=== PATIENT | male | born 1975 | race African-American/Black ===

== ENCOUNTER 2017-06-28 17:02 | Inpatient (IN) | payer OTHER ==
[~2017-06-28] VITALS: Ht 182.9 cm; Wt 128.0 kg
[2017-06-28] MEDS ORDERED: SODIUM CHLORIDE 0.9% 1,000 ML IV ONE (18:12)
[2017-06-28] MEDS ORDERED: CLINDAMYCIN 600MG IV 50 ML IV ONE (18:15)
[2017-06-28 18:55] LABS: Basophils # (auto) 0.1 uL; Eosinophils # (auto) 0.1 uL; Hematocrit 44.2 % (41.0-53.0); Monocytes # (auto) 0.8 uL
[2017-06-28 18:59] LABS: Basophils % (auto) 0.9 % (0.0-2.0); Eosinophils % (auto) 0.9 % (0.0-7.0); Hemoglobin 14.7 g/dL (13.5-17.5); Lymphocytes # (auto) 2.4 uL; Lymphocytes % (auto) 24.6 % (10.0-50.0); Mean Corpuscular Hemoglobin 26.9 pg (28.0-32.0); Mean Corpuscular Hgb Conc. 33.3 g/dL (32.0-36.0); Mean Corpuscular Volume 80.7 fL (80.0-100.0); Monocytes % (auto) 7.9 % (0.0-12.0); Neutrophils # (auto) 6.4 uL; Neutrophils % (auto) 65.7 % (37.0-80.0); Nucleated Red Blood Cells % 0.2 %; Platelet Count (auto) 183 10^3/uL (140-450); Red Blood Cells 5.47 10^6/uL (4.5-5.90); Red Cell Distribution Width 13.6 % (11.8-14.3); White Blood Cell 9.7 10^3/uL (4.4-10.8)
[2017-06-28 19:06] LABS: INR 1.05 (0.9-1.15); Partial Thromboplastin Time 31.8 sec (22.64-33.71); Prothrombin Time 11.5 sec (9.37-12.3)
[2017-06-28 19:12] LABS: Albumin 3.6 g/dL (3.4-5.0); BUN/Creatinine Ratio 6.6; Bilirubin, Total 0.6 mg/dL (0.2-1.0); Calcium 8.8 mg/dL (8.5-10.1); Magnesium 2.5 mg/dL (1.6-2.6); Potassium 4.3 mmol/L (3.5-5.1); Total Protein 8.8 g/dL (6.4-8.2)
[2017-06-28] MEDS ORDERED: LISINOPRIL 5 MG TAB PO ONE (20:15)
[2017-06-28] MEDS ORDERED: DEXTROSE (50%) 50ML SYRG IV PRN (20:15)
[2017-06-28] MEDS: InsuLIN REG 1unit/0.01ml Soln (100units/ml) SC SCH (22:00)
[2017-06-28] MEDS ORDERED: VANCOMYCIN 1GM/250ML 250 ML IV ONE (22:00)
[2017-06-28] MEDS: ACCU-CHEK COMFORT CURVE STRIP VI SCH (22:00)
[2017-06-29 01:13] VITALS: BP 139/84
[2017-06-29] MEDS ORDERED: HYDROcodone-ACET 10/325MG TAB PO ONE (02:00)
[2017-06-29 05:31] VITALS: BP 134/95
[2017-06-29] MEDS: InsuLIN REG 1unit/0.01ml Soln (100units/ml) SC SCH ×4 (06:46→22:06)
[2017-06-29] MEDS: ACCU-CHEK COMFORT CURVE STRIP VI SCH ×4 (06:46→22:06)
[2017-06-29 09:00] VITALS: BP 153/95
[2017-06-29] MEDS ORDERED: INSULIN LANTUS (GLARGINE) 1 /0.01ml (100units/ml) SC ONE (10:00)
[2017-06-29] MEDS: LOSARTAN POTASSIUM 25 MG TAB PO SCH (10:14)
[2017-06-29] MEDS: INSULIN LANTUS (GLARGINE) 1 /0.01ml (100units/ml) SC SCH (10:19)
[2017-06-29 13:00] VITALS: BP 141/91
[2017-06-29 22:00] VITALS: BP 144/81
[2017-06-29] MEDS: AMITRIPTYLINE HCL 25 MG TAB PO SCH (22:05)
[2017-06-29] MEDS: HALOPERIDOL 5 MG TAB PO SCH (22:06)
[2017-06-30 05:00] VITALS: BP 129/73
[2017-06-30] MEDS: ACCU-CHEK COMFORT CURVE STRIP VI SCH ×4 (06:19→22:00)
[2017-06-30] MEDS: InsuLIN REG 1unit/0.01ml Soln (100units/ml) SC SCH ×4 (06:19→22:00)
[2017-06-30 09:00] VITALS: BP 111/73
[2017-06-30] MEDS: LOSARTAN POTASSIUM 25 MG TAB PO SCH (09:56)
[2017-06-30] MEDS: HYDROcodone-ACET 5/325MG TAB PO PRN ×2 (09:57→17:40)
[2017-06-30] MEDS: INSULIN LANTUS (GLARGINE) 1 /0.01ml (100units/ml) SC SCH (10:31)
[2017-06-30] MEDS ORDERED: VANCOMYCIN PER PHARMACY 0 MG IV SCH (12:45)
[2017-06-30 13:41] VITALS: BP 126/86
[2017-06-30 14:41] LABS: Albumin 2.8 g/dL (3.4-5.0); BUN/Creatinine Ratio 10.1; Bilirubin, Total 0.2 mg/dL (0.2-1.0); Calcium 8.4 mg/dL (8.5-10.1); Potassium 4.1 mmol/L (3.5-5.1); Total Protein 7.5 g/dL (6.4-8.2)
[2017-06-30] MEDS: VANCOMYCIN 1,250 MG in D5W 5% 250 ML IV SCH (15:49)
[2017-06-30 17:09] VITALS: BP 135/88
[2017-06-30] MEDS: HALOPERIDOL 5 MG TAB PO SCH (21:36)
[2017-06-30] MEDS: AMITRIPTYLINE HCL 25 MG TAB PO SCH (21:36)
[2017-06-30] MEDS: ASCORBIC ACID 500 MG TAB PO SCH (21:37)
[2017-06-30] MEDS ORDERED: VANCOMYCIN 1GM/250ML 250 ML IV SCH (22:00)
[2017-06-30 22:18] VITALS: BP 133/86
[2017-07-01] MEDS: VANCOMYCIN 1,250 MG in D5W 5% 250 ML IV SCH ×2 (01:44→14:14)
[2017-07-01 04:45] VITALS: BP 127/86
[2017-07-01] MEDS: InsuLIN REG 1unit/0.01ml Soln (100units/ml) SC SCH ×4 (05:47→22:50)
[2017-07-01] MEDS: ACCU-CHEK COMFORT CURVE STRIP VI SCH ×4 (05:47→22:49)
[2017-07-01 07:38] LABS: Albumin 2.9 g/dL (3.4-5.0); Calcium 8.8 mg/dL (8.5-10.1); Potassium 3.9 mmol/L (3.5-5.1)
[2017-07-01 07:40] LABS: BUN/Creatinine Ratio 8.9
[2017-07-01 07:42] LABS: Bilirubin, Total 0.2 mg/dL (0.2-1.0); Total Protein 7.7 g/dL (6.4-8.2)
[2017-07-01 08:00] VITALS: BP 128/99
[2017-07-01 09:00] VITALS: BP 128/99
[2017-07-01] MEDS: ASCORBIC ACID 500 MG TAB PO SCH ×2 (09:59→22:49)
[2017-07-01] MEDS: MULTIPLE VITAMIN TAB PO SCH (09:59)
[2017-07-01] MEDS: LOSARTAN POTASSIUM 25 MG TAB PO SCH (09:59)
[2017-07-01] MEDS: INSULIN LANTUS (GLARGINE) 1 /0.01ml (100units/ml) SC SCH (10:03)
[2017-07-01 12:41] VITALS: BP 156/97
[2017-07-01 16:55] VITALS: BP 140/95
[2017-07-01 22:03] VITALS: BP 164/93
[2017-07-01] MEDS: AMITRIPTYLINE HCL 25 MG TAB PO SCH (22:48)
[2017-07-01] MEDS: HALOPERIDOL 5 MG TAB PO SCH (22:49)
[2017-07-02] MEDS: VANCOMYCIN 1,250 MG in D5W 5% 250 ML IV SCH (03:00)
[2017-07-02 05:22] VITALS: BP 158/86
[2017-07-02] MEDS: ACCU-CHEK COMFORT CURVE STRIP VI SCH ×4 (06:27→21:50)
[2017-07-02] MEDS: InsuLIN REG 1unit/0.01ml Soln (100units/ml) SC SCH ×4 (06:28→21:50)
[2017-07-02] MEDS ORDERED: ceFAZolin 1GM/50ML 50 ML IV ONE (06:51)
[2017-07-02] MEDS ORDERED: BUPIVACAINE 0.75% INJ 10ML MPV SDV IJ ONE (06:59)
[2017-07-02] MEDS ORDERED: ceFAZolin 1GM VL ONE (06:59)
[2017-07-02] MEDS ORDERED: NEOMYCIN-BACITRACIN-POLYM 15GM TOP OINT TOP ONE (06:59)
[2017-07-02 07:03] LABS: BUN/Creatinine Ratio 7.5; Bilirubin, Total 0.3 mg/dL (0.2-1.0); Calcium 8.5 mg/dL (8.5-10.1); Potassium 4.4 mmol/L (3.5-5.1); Total Protein 8.2 g/dL (6.4-8.2)
[2017-07-02] MEDS ORDERED: MIDAZOLAM HCL 1MG/1ML-2 ML VIAL ONE (07:43)
[2017-07-02] MEDS ORDERED: fentaNYL CITRATE 100 MCG/2 ML VL ONE (07:43)
[2017-07-02] MEDS ORDERED: PROPOFOL 10 MG/ML 20 ML IV ONE (07:43)
[2017-07-02] MEDS ORDERED: ePHEDrine SULFATE 50 MG/ML AMP IV PRN (08:45)
[2017-07-02] MEDS ORDERED: ONDANSETRON HCL 4 MG/2 ML VIAL IV ONE (08:45)
[2017-07-02] MEDS ORDERED: hydrALAZINE HCL 20 MG/ML VL IV PRN (08:45)
[2017-07-02] MEDS ORDERED: HYDROmorphone HCL 2 MG/ML VL IV PRN (08:45)
[2017-07-02] MEDS: INSULIN LANTUS (GLARGINE) 1 /0.01ml (100units/ml) SC SCH (10:00)
[2017-07-02] MEDS: MULTIPLE VITAMIN TAB PO SCH (10:42)
[2017-07-02] MEDS: ASCORBIC ACID 500 MG TAB PO SCH ×2 (10:42→21:48)
[2017-07-02] MEDS: HYDROcodone-ACET 5/325MG TAB PO PRN ×2 (10:42→17:59)
[2017-07-02] MEDS: LOSARTAN POTASSIUM 25 MG TAB PO SCH (10:43)
[2017-07-02 10:52] VITALS: BP 132/90
[2017-07-02 11:48] VITALS: BP 147/96
[2017-07-02] MEDS: VANCOMYCIN 1,500 MG in D5W 5% 250 ML IV SCH (12:45)
[2017-07-02 17:05] VITALS: BP 155/93
[2017-07-02] MEDS: HALOPERIDOL 5 MG TAB PO SCH (21:49)
[2017-07-02] MEDS: AMITRIPTYLINE HCL 25 MG TAB PO SCH (21:49)
[2017-07-02 22:00] VITALS: BP 142/97
[2017-07-03] MEDS: VANCOMYCIN 1,500 MG in D5W 5% 250 ML IV SCH ×2 (00:17→12:09)
[2017-07-03 05:04] VITALS: BP 156/92
[2017-07-03] MEDS: HYDROcodone-ACET 5/325MG TAB PO PRN ×3 (05:42→22:39)
[2017-07-03] MEDS: InsuLIN REG 1unit/0.01ml Soln (100units/ml) SC SCH ×4 (06:45→22:00)
[2017-07-03] MEDS: ACCU-CHEK COMFORT CURVE STRIP VI SCH ×4 (06:45→22:00)
[2017-07-03 07:20] LABS: Albumin 2.9 g/dL (3.4-5.0); Calcium 8.8 mg/dL (8.5-10.1)
[2017-07-03 07:26] LABS: Bilirubin, Total 0.4 mg/dL (0.2-1.0); Total Protein 7.8 g/dL (6.4-8.2)
[2017-07-03 09:22] VITALS: BP 131/84
[2017-07-03] MEDS: ASCORBIC ACID 500 MG TAB PO SCH ×2 (10:02→22:34)
[2017-07-03] MEDS: MULTIPLE VITAMIN TAB PO SCH (10:02)
[2017-07-03] MEDS: LOSARTAN POTASSIUM 25 MG TAB PO SCH (10:03)
[2017-07-03] MEDS: INSULIN LANTUS (GLARGINE) 1 /0.01ml (100units/ml) SC SCH (10:07)
[2017-07-03 12:30] VITALS: BP 119/87
[2017-07-03 17:29] VITALS: BP 152/83
[2017-07-03 20:00] VITALS: BP 155/55
[2017-07-03 22:00] VITALS: BP 155/94
[2017-07-03] MEDS: AMITRIPTYLINE HCL 25 MG TAB PO SCH (22:34)
[2017-07-03] MEDS: HALOPERIDOL 5 MG TAB PO SCH (22:34)
[2017-07-04] MEDS: VANCOMYCIN 1,500 MG in D5W 5% 250 ML IV SCH ×2 (01:39→11:37)
[2017-07-04 05:20] VITALS: BP 135/90
[2017-07-04] MEDS: InsuLIN REG 1unit/0.01ml Soln (100units/ml) SC SCH ×4 (06:49→22:00)
[2017-07-04] MEDS: ACCU-CHEK COMFORT CURVE STRIP VI SCH ×4 (06:49→22:08)
[2017-07-04 07:06] LABS: Basophils # (auto) 0 uL; Basophils % (auto) 0.4 % (0.0-2.0); Eosinophils # (auto) 0.1 uL; Hematocrit 41.9 % (41.0-53.0); Hemoglobin 14.1 g/dL (13.5-17.5); Lymphocytes # (auto) 2.5 uL; Lymphocytes % (auto) 26.9 % (10.0-50.0); Mean Corpuscular Hgb Conc. 33.6 g/dL (32.0-36.0); Mean Corpuscular Volume 80.2 fL (80.0-100.0); Monocytes # (auto) 0.8 uL; Monocytes % (auto) 8.6 % (0.0-12.0); Neutrophils # (auto) 5.8 uL; Neutrophils % (auto) 63.1 % (37.0-80.0); Nucleated Red Blood Cells % 0.1 %; Platelet Count (auto) 150 10^3/uL (140-450); Red Blood Cells 5.22 10^6/uL (4.5-5.90); Red Cell Distribution Width 13.8 % (11.8-14.3); White Blood Cell 9.2 10^3/uL (4.4-10.8)
[2017-07-04 07:11] LABS: BUN/Creatinine Ratio 9.1; Calcium 8.9 mg/dL (8.5-10.1)
[2017-07-04 07:52] VITALS: BP 139/92
[2017-07-04] MEDS: ENOXAPARIN SOD 40 MG/0.4 ML SYRINGE SC SCH (10:19)
[2017-07-04] MEDS: LOSARTAN POTASSIUM 25 MG TAB PO SCH (10:20)
[2017-07-04] MEDS: ASCORBIC ACID 500 MG TAB PO SCH ×2 (10:20→22:00)
[2017-07-04] MEDS: MULTIPLE VITAMIN TAB PO SCH (10:20)
[2017-07-04] MEDS: HYDROcodone-ACET 5/325MG TAB PO PRN ×2 (10:21→17:47)
[2017-07-04] MEDS: INSULIN LANTUS (GLARGINE) 1 /0.01ml (100units/ml) SC SCH (10:21)
[2017-07-04 11:01] VITALS: BP 127/76
[2017-07-04] MEDS ORDERED: LIDOCAINE 1% HCL (LOCAL ANESTH.) INJ 20ML MDV ID ONE (14:30)
[2017-07-04 16:53] VITALS: BP 155/92
[2017-07-04 20:00] VITALS: BP 136/83
[2017-07-04] MEDS: AMITRIPTYLINE HCL 25 MG TAB PO SCH (21:59)
[2017-07-04] MEDS: HALOPERIDOL 5 MG TAB PO SCH (22:00)
[2017-07-04] MEDS: SODIUM CHLOR 0.9% PF (SALINE LOCK) 10ML VIAL IV SCH (22:00)
[2017-07-04 22:04] VITALS: BP 136/86
[2017-07-05] MEDS: VANCOMYCIN 1,500 MG in D5W 5% 250 ML IV SCH (00:37)
[2017-07-05 04:48] VITALS: BP 136/89
[2017-07-05] MEDS: InsuLIN REG 1unit/0.01ml Soln (100units/ml) SC SCH ×4 (06:37→21:56)
[2017-07-05] MEDS: ACCU-CHEK COMFORT CURVE STRIP VI SCH ×4 (06:37→21:28)
[2017-07-05 09:16] VITALS: BP 134/84
[2017-07-05] MEDS: VANCOMYCIN 1,250 MG in D5W 5% 250 ML IV SCH ×2 (09:53→18:13)
[2017-07-05] MEDS: ENOXAPARIN SOD 40 MG/0.4 ML SYRINGE SC SCH (10:26)
[2017-07-05] MEDS: ASCORBIC ACID 500 MG TAB PO SCH ×2 (10:26→21:28)
[2017-07-05] MEDS: MULTIPLE VITAMIN TAB PO SCH (10:26)
[2017-07-05] MEDS: LOSARTAN POTASSIUM 25 MG TAB PO SCH (10:27)
[2017-07-05] MEDS: HYDROcodone-ACET 5/325MG TAB PO PRN ×2 (10:27→18:12)
[2017-07-05] MEDS: INSULIN LANTUS (GLARGINE) 1 /0.01ml (100units/ml) SC SCH (10:29)
[2017-07-05] MEDS: SODIUM CHLOR 0.9% PF (SALINE LOCK) 10ML VIAL IV SCH ×2 (10:33→21:27)
[2017-07-05 13:20] VITALS: BP 139/86
[2017-07-05 16:53] VITALS: BP 122/93
[2017-07-05] MEDS: AMITRIPTYLINE HCL 25 MG TAB PO SCH (21:27)
[2017-07-05] MEDS: HALOPERIDOL 5 MG TAB PO SCH (21:28)
[2017-07-05 21:40] VITALS: BP 135/73
[2017-07-06] MEDS: VANCOMYCIN 1,250 MG in D5W 5% 250 ML IV SCH ×2 (01:15→12:40)
[2017-07-06 05:17] VITALS: BP 116/70
[2017-07-06 06:24] LABS: Eosinophils # (auto) 0.1 uL; Hemoglobin 14.2 g/dL (13.5-17.5); Monocytes # (auto) 0.8 uL; Neutrophils # (auto) 5.6 uL
[2017-07-06 06:28] LABS: Basophils # (auto) 0.1 uL; Basophils % (auto) 0.7 % (0.0-2.0); Eosinophils % (auto) 1.6 % (0.0-7.0); Hematocrit 42.9 % (41.0-53.0); Lymphocytes # (auto) 2.1 uL; Lymphocytes % (auto) 24.4 % (10.0-50.0); Mean Corpuscular Hemoglobin 26.5 pg (28.0-32.0); Mean Corpuscular Hgb Conc. 33.1 g/dL (32.0-36.0); Mean Corpuscular Volume 80.2 fL (80.0-100.0); Monocytes % (auto) 8.7 % (0.0-12.0); Neutrophils % (auto) 64.6 % (37.0-80.0); Nucleated Red Blood Cells % 0.2 %; Platelet Count (auto) 156 10^3/uL (140-450); Red Blood Cells 5.35 10^6/uL (4.5-5.90); Red Cell Distribution Width 13.8 % (11.8-14.3); White Blood Cell 8.6 10^3/uL (4.4-10.8)
[2017-07-06] MEDS: ACCU-CHEK COMFORT CURVE STRIP VI SCH ×4 (06:39→21:59)
[2017-07-06] MEDS: HYDROcodone-ACET 5/325MG TAB PO PRN ×3 (06:40→17:59)
[2017-07-06] MEDS: InsuLIN REG 1unit/0.01ml Soln (100units/ml) SC SCH ×4 (06:40→21:59)
[2017-07-06 06:49] LABS: BUN/Creatinine Ratio 10.3; Calcium 8.6 mg/dL (8.5-10.1)
[2017-07-06 09:00] VITALS: BP 132/80
[2017-07-06] MEDS: MULTIPLE VITAMIN TAB PO SCH (11:10)
[2017-07-06] MEDS: LOSARTAN POTASSIUM 25 MG TAB PO SCH (11:11)
[2017-07-06] MEDS: ASCORBIC ACID 500 MG TAB PO SCH ×2 (11:11→21:49)
[2017-07-06] MEDS: INSULIN LANTUS (GLARGINE) 1 /0.01ml (100units/ml) SC SCH (11:12)
[2017-07-06] MEDS: ENOXAPARIN SOD 40 MG/0.4 ML SYRINGE SC SCH (11:12)
[2017-07-06] MEDS: SODIUM CHLOR 0.9% PF (SALINE LOCK) 10ML VIAL IV SCH ×2 (12:40→21:48)
[2017-07-06 13:00] VITALS: BP 139/77
[2017-07-06 17:00] VITALS: BP 142/84
[2017-07-06] MEDS: HALOPERIDOL 5 MG TAB PO SCH (21:49)
[2017-07-06] MEDS: AMITRIPTYLINE HCL 25 MG TAB PO SCH (21:49)
[2017-07-06 22:00] VITALS: BP 131/76
[2017-07-07] MEDS: VANCOMYCIN 1,250 MG in D5W 5% 250 ML IV SCH ×2 (00:50→12:58)
[2017-07-07] MEDS: HYDROcodone-ACET 5/325MG TAB PO PRN ×2 (01:05→20:20)
[2017-07-07 05:00] VITALS: BP 115/64
[2017-07-07] MEDS: ACCU-CHEK COMFORT CURVE STRIP VI SCH ×4 (06:10→23:41)
[2017-07-07] MEDS: InsuLIN REG 1unit/0.01ml Soln (100units/ml) SC SCH ×4 (06:10→22:00)
[2017-07-07 09:00] VITALS: BP 143/98
[2017-07-07] MEDS: SODIUM CHLOR 0.9% PF (SALINE LOCK) 10ML VIAL IV SCH ×2 (09:43→23:40)
[2017-07-07] MEDS: LOSARTAN POTASSIUM 25 MG TAB PO SCH (09:44)
[2017-07-07] MEDS: MULTIPLE VITAMIN TAB PO SCH (09:44)
[2017-07-07] MEDS: ENOXAPARIN SOD 40 MG/0.4 ML SYRINGE SC SCH (09:45)
[2017-07-07] MEDS: INSULIN LANTUS (GLARGINE) 1 /0.01ml (100units/ml) SC SCH (09:45)
[2017-07-07] MEDS: ASCORBIC ACID 500 MG TAB PO SCH ×2 (09:45→21:33)
[2017-07-07 12:52] VITALS: BP 140/95
[2017-07-07 17:00] VITALS: BP 137/92
[2017-07-07 20:00] VITALS: BP 140/89
[2017-07-07] MEDS: AMITRIPTYLINE HCL 25 MG TAB PO SCH (21:32)
[2017-07-07] MEDS: HALOPERIDOL 5 MG TAB PO SCH (21:33)
[2017-07-07 21:59] VITALS: BP 140/89
[2017-07-08] MEDS: VANCOMYCIN 1,250 MG in D5W 5% 250 ML IV SCH ×2 (00:51→13:00)
[2017-07-08 04:36] VITALS: BP 127/77
[2017-07-08 06:25] LABS: Eosinophils # (auto) 0.2 uL
[2017-07-08 06:27] LABS: Basophils # (auto) 0 uL; Basophils % (auto) 0.4 % (0.0-2.0); Eosinophils % (auto) 1.8 % (0.0-7.0); Hematocrit 43.4 % (41.0-53.0); Hemoglobin 14.5 g/dL (13.5-17.5); Lymphocytes # (auto) 2.5 uL; Lymphocytes % (auto) 29.1 % (10.0-50.0); Mean Corpuscular Hemoglobin 26.8 pg (28.0-32.0); Mean Corpuscular Hgb Conc. 33.6 g/dL (32.0-36.0); Mean Corpuscular Volume 79.9 fL (80.0-100.0); Monocytes # (auto) 0.6 uL; Monocytes % (auto) 7.1 % (0.0-12.0); Neutrophils # (auto) 5.3 uL; Neutrophils % (auto) 61.6 % (37.0-80.0); Nucleated Red Blood Cells % 0.6 %; Platelet Count (auto) 166 10^3/uL (140-450); Red Blood Cells 5.43 10^6/uL (4.5-5.90); Red Cell Distribution Width 13.7 % (11.8-14.3); White Blood Cell 8.6 10^3/uL (4.4-10.8)
[2017-07-08] MEDS: InsuLIN REG 1unit/0.01ml Soln (100units/ml) SC SCH ×4 (06:30→22:00)
[2017-07-08] MEDS: ACCU-CHEK COMFORT CURVE STRIP VI SCH ×4 (06:31→22:00)
[2017-07-08 06:43] LABS: Albumin 3.1 g/dL (3.4-5.0); BUN/Creatinine Ratio 11.8; Bilirubin, Total 0.3 mg/dL (0.2-1.0); Calcium 8.8 mg/dL (8.5-10.1); Potassium 4.2 mmol/L (3.5-5.1); Total Protein 8.7 g/dL (6.4-8.2)
[2017-07-08 08:43] VITALS: BP 136/74
[2017-07-08] MEDS: ENOXAPARIN SOD 40 MG/0.4 ML SYRINGE SC SCH (09:32)
[2017-07-08] MEDS: MULTIPLE VITAMIN TAB PO SCH (09:33)
[2017-07-08] MEDS: ASCORBIC ACID 500 MG TAB PO SCH ×2 (09:33→22:03)
[2017-07-08] MEDS: DOCUSATE SOD 100 MG CAP PO PRN ×2 (09:33→22:03)
[2017-07-08] MEDS: SODIUM CHLOR 0.9% PF (SALINE LOCK) 10ML VIAL IV SCH ×2 (09:34→22:00)
[2017-07-08] MEDS: LOSARTAN POTASSIUM 25 MG TAB PO SCH (09:34)
[2017-07-08] MEDS: INSULIN LANTUS (GLARGINE) 1 /0.01ml (100units/ml) SC SCH (10:00)
[2017-07-08 12:25] VITALS: BP 137/74
[2017-07-08 17:00] VITALS: BP 142/82
[2017-07-08 20:00] VITALS: BP 130/86
[2017-07-08] MEDS: HYDROcodone-ACET 5/325MG TAB PO PRN (20:08)
[2017-07-08 21:50] VITALS: BP 130/86
[2017-07-08] MEDS: HALOPERIDOL 5 MG TAB PO SCH (22:02)
[2017-07-08] MEDS: AMITRIPTYLINE HCL 25 MG TAB PO SCH (22:02)
[2017-07-09] MEDS: VANCOMYCIN 1,250 MG in D5W 5% 250 ML IV SCH ×2 (01:10→13:00)
[2017-07-09 05:11] VITALS: BP 127/83
[2017-07-09] MEDS: InsuLIN REG 1unit/0.01ml Soln (100units/ml) SC SCH ×4 (06:04→21:32)
[2017-07-09] MEDS: ACCU-CHEK COMFORT CURVE STRIP VI SCH ×4 (06:05→21:16)
[2017-07-09 06:46] LABS: Monocytes % (auto) 8.3 % (0.0-12.0); Neutrophils % (auto) 57.4 % (37.0-80.0); Nucleated Red Blood Cells % 0.1 %; Red Blood Cells 5.41 10^6/uL (4.5-5.90)
[2017-07-09 06:48] LABS: Basophils # (auto) 0 uL; Basophils % (auto) 0.5 % (0.0-2.0); Eosinophils # (auto) 0.1 uL; Eosinophils % (auto) 1.9 % (0.0-7.0); Hematocrit 43.6 % (41.0-53.0); Hemoglobin 14.6 g/dL (13.5-17.5); Lymphocytes # (auto) 2.5 uL; Lymphocytes % (auto) 31.9 % (10.0-50.0); Mean Corpuscular Hgb Conc. 33.6 g/dL (32.0-36.0); Mean Corpuscular Volume 80.5 fL (80.0-100.0); Monocytes # (auto) 0.7 uL; Neutrophils # (auto) 4.6 uL; Platelet Count (auto) 154 10^3/uL (140-450); Red Cell Distribution Width 13.8 % (11.8-14.3)
[2017-07-09 06:59] LABS: BUN/Creatinine Ratio 10.9; Potassium 4.2 mmol/L (3.5-5.1)
[2017-07-09 09:00] VITALS: BP 129/86
[2017-07-09] MEDS: MULTIPLE VITAMIN TAB PO SCH (10:08)
[2017-07-09] MEDS: ENOXAPARIN SOD 40 MG/0.4 ML SYRINGE SC SCH (10:08)
[2017-07-09] MEDS: INSULIN LANTUS (GLARGINE) 1 /0.01ml (100units/ml) SC SCH (10:10)
[2017-07-09] MEDS: LOSARTAN POTASSIUM 25 MG TAB PO SCH (10:10)
[2017-07-09] MEDS: SODIUM CHLOR 0.9% PF (SALINE LOCK) 10ML VIAL IV SCH ×2 (10:10→21:31)
[2017-07-09] MEDS: ASCORBIC ACID 500 MG TAB PO SCH ×2 (10:10→21:14)
[2017-07-09] MEDS: HYDROcodone-ACET 5/325MG TAB PO PRN ×2 (10:16→17:29)
[2017-07-09 12:00] VITALS: BP 122/91
[2017-07-09 16:56] VITALS: BP 124/94
[2017-07-09] MEDS: HALOPERIDOL 5 MG TAB PO SCH (21:13)
[2017-07-09] MEDS: AMITRIPTYLINE HCL 25 MG TAB PO SCH (21:13)
[2017-07-09 22:00] VITALS: BP 119/84
[2017-07-10] MEDS: VANCOMYCIN 1,250 MG in D5W 5% 250 ML IV SCH ×2 (02:00→12:47)
[2017-07-10] MEDS: HYDROcodone-ACET 5/325MG TAB PO PRN ×3 (02:28→15:45)
[2017-07-10 05:00] VITALS: BP 144/75
[2017-07-10] MEDS: ACCU-CHEK COMFORT CURVE STRIP VI SCH ×4 (06:23→22:10)
[2017-07-10] MEDS: InsuLIN REG 1unit/0.01ml Soln (100units/ml) SC SCH ×4 (06:23→22:00)
[2017-07-10 08:45] VITALS: BP 140/97
[2017-07-10] MEDS: DOCUSATE SOD 100 MG CAP PO PRN (09:03)
[2017-07-10] MEDS: INSULIN LANTUS (GLARGINE) 1 /0.01ml (100units/ml) SC SCH (10:00)
[2017-07-10] MEDS: SODIUM CHLOR 0.9% PF (SALINE LOCK) 10ML VIAL IV SCH ×2 (10:10→22:07)
[2017-07-10] MEDS: LOSARTAN POTASSIUM 25 MG TAB PO SCH (10:11)
[2017-07-10] MEDS: ASCORBIC ACID 500 MG TAB PO SCH ×2 (10:11→22:10)
[2017-07-10] MEDS: ENOXAPARIN SOD 40 MG/0.4 ML SYRINGE SC SCH (10:11)
[2017-07-10] MEDS: MULTIPLE VITAMIN TAB PO SCH (10:11)
[2017-07-10 12:00] VITALS: BP 127/98
[2017-07-10 17:00] VITALS: BP 142/95
[2017-07-10] MEDS ORDERED: AMITRIPTYLINE HCL 25 MG TAB ONE ×2 (21:56→22:00)
[2017-07-10 22:00] VITALS: BP 143/87
[2017-07-10] MEDS: AMITRIPTYLINE HCL 25 MG TAB PO SCH (22:09)
[2017-07-10] MEDS: HALOPERIDOL 5 MG TAB PO SCH (22:10)
[2017-07-11] MEDS: VANCOMYCIN 1,250 MG in D5W 5% 250 ML IV SCH ×2 (00:55→12:54)
[2017-07-11] MEDS: HYDROcodone-ACET 5/325MG TAB PO PRN ×3 (01:02→16:23)
[2017-07-11 05:00] VITALS: BP 127/86
[2017-07-11] MEDS: ACCU-CHEK COMFORT CURVE STRIP VI SCH ×4 (06:21→22:06)
[2017-07-11] MEDS: InsuLIN REG 1unit/0.01ml Soln (100units/ml) SC SCH ×4 (06:23→22:00)
[2017-07-11] MEDS: SODIUM CHLOR 0.9% PF (SALINE LOCK) 10ML VIAL IV SCH ×2 (08:36→22:02)
[2017-07-11 09:00] VITALS: BP 142/94
[2017-07-11] MEDS: ASCORBIC ACID 500 MG TAB PO SCH ×2 (09:41→22:03)
[2017-07-11] MEDS: MULTIPLE VITAMIN TAB PO SCH (09:41)
[2017-07-11] MEDS: ENOXAPARIN SOD 40 MG/0.4 ML SYRINGE SC SCH (09:41)
[2017-07-11] MEDS: LOSARTAN POTASSIUM 25 MG TAB PO SCH (09:41)
[2017-07-11] MEDS: INSULIN LANTUS (GLARGINE) 1 /0.01ml (100units/ml) SC SCH (09:42)
[2017-07-11 13:00] VITALS: BP 144/89
[2017-07-11 17:00] VITALS: BP 123/83
[2017-07-11 22:00] VITALS: BP 134/98
[2017-07-11] MEDS: HALOPERIDOL 5 MG TAB PO SCH (22:02)
[2017-07-11] MEDS: AMITRIPTYLINE HCL 25 MG TAB PO SCH (22:03)
[2017-07-12] MEDS: HYDROcodone-ACET 5/325MG TAB PO PRN (01:02)
[2017-07-12] MEDS: VANCOMYCIN 1,250 MG in D5W 5% 250 ML IV SCH ×3 (01:02→13:07)
[2017-07-12 05:00] VITALS: BP 134/74
[2017-07-12] MEDS: ACCU-CHEK COMFORT CURVE STRIP VI SCH ×2 (06:32→11:27)
[2017-07-12] MEDS: InsuLIN REG 1unit/0.01ml Soln (100units/ml) SC SCH ×2 (06:32→11:27)
[2017-07-12 07:53] VITALS: BP 135/85
[2017-07-12 09:57] LABS: BUN/Creatinine Ratio 9.3; Calcium 9.1 mg/dL (8.5-10.1)
[2017-07-12] MEDS: MULTIPLE VITAMIN TAB PO SCH (10:30)
[2017-07-12] MEDS: ENOXAPARIN SOD 40 MG/0.4 ML SYRINGE SC SCH (10:30)
[2017-07-12] MEDS: ASCORBIC ACID 500 MG TAB PO SCH (10:30)
[2017-07-12] MEDS: SODIUM CHLOR 0.9% PF (SALINE LOCK) 10ML VIAL IV SCH (10:31)
[2017-07-12] MEDS: LOSARTAN POTASSIUM 25 MG TAB PO SCH (10:31)
[2017-07-12 11:00] VITALS: BP 123/83
[2017-07-12] MEDS: INSULIN LANTUS (GLARGINE) 1 /0.01ml (100units/ml) SC SCH (11:00)
[2017-07-12 13:00] VITALS: BP 120/82
== END 2017-07-12 15:45 | DRG 617 ==
LOC: ER 17:02 → EEVIPCON 17:03 → OVERFLOW 17:03 → EAST 22:00
PROVIDERS: ADMIT Internal Medicine; ATTEND Internal Medicine
PROC: 0Y6P0Z0 Detachment at Right 1st Toe, Complete, Open Approach (ICD-10-PCS; principal; 2017-07-02 07:34)
PROC: 02HV33Z Insertion of Infusion Device into Superior Vena Cava, Percutaneous Approach (ICD-10-PCS; 2017-07-04)
DX: E11.69 Type 2 diabetes mellitus with other specified complication (principal); E11.52 Type 2 diabetes mellitus with diabetic peripheral angiopathy with gangrene; M86.8X7 Other osteomyelitis, ankle and foot; L02.611 Cutaneous abscess of right foot; B95.61 Methicillin susceptible Staphylococcus aureus infection as the cause of diseases classified elsewhere; X58.XXXA Exposure to other specified factors, initial encounter; L03.031 Cellulitis of right toe; S90.411A Abrasion, right great toe, initial encounter; I10 Essential (primary) hypertension; Z79.4 Long term (current) use of insulin; Z83.3 Family history of diabetes mellitus; Z87.891 Personal history of nicotine dependence; Y93.89 Activity, other specified; Y92.89 Other specified places as the place of occurrence of the external cause; Y99.8 Other external cause status
CPT/HCPCS: 36415; 36569; 71045; 73620; 73700; 80048; 80053; 80202; 82962; 83735; 85025; 85610; 85652; 85730; 87040; 87070; 87075; 87077; 87186; 87205; 93005; 93926; 93971; 94761; 96365; 97163; J0690; J1815; J2250; J2704; J3490; J7060